=== PATIENT | male | born 1950 | race Caucasian/White ===

== ENCOUNTER → 2020-08-15 08:43 | Outpatient (BNVA) | payer MEDICARE, SELFPAY | PROVIDERS: PCP Internal Medicine; Visit Provider Internal Medicine | DX: I48.0 Paroxysmal atrial fibrillation (principal); Z51.81 Encounter for therapeutic drug level monitoring; Z79.01 Long term (current) use of anticoagulants | CPT/HCPCS: 85610; 99211 ==

== ENCOUNTER → 2020-09-17 08:21 | Outpatient (BNVA) | payer MEDICARE, SELFPAY | PROVIDERS: PCP Internal Medicine; Visit Provider Internal Medicine | DX: I48.0 Paroxysmal atrial fibrillation (principal); Z51.81 Encounter for therapeutic drug level monitoring; Z79.01 Long term (current) use of anticoagulants | CPT/HCPCS: 85610; 99211 ==

== ENCOUNTER → 2020-10-29 07:56 | Outpatient (BNVA) | payer MEDICARE, SELFPAY | PROVIDERS: PCP Internal Medicine; Visit Provider Internal Medicine | DX: Z76.89 Persons encountering health services in other specified circumstances (principal) ==

== ENCOUNTER → 2020-11-22 11:16 | Outpatient (BNVA) | payer MEDICARE, SELFPAY | PROVIDERS: PCP Internal Medicine; Visit Provider Internal Medicine | DX: I48.0 Paroxysmal atrial fibrillation (principal); Z51.81 Encounter for therapeutic drug level monitoring; Z79.01 Long term (current) use of anticoagulants | CPT/HCPCS: 85610; 99211 ==

== ENCOUNTER → 2020-11-29 13:05 | Outpatient (BNVA) | payer MEDICARE, SELFPAY | PROVIDERS: PCP Internal Medicine; Visit Provider Internal Medicine | DX: I48.0 Paroxysmal atrial fibrillation (principal); Z51.81 Encounter for therapeutic drug level monitoring; Z79.01 Long term (current) use of anticoagulants | CPT/HCPCS: 85610; 99211 ==

== ENCOUNTER → 2020-12-04 11:01 | Outpatient (BNVA) | payer MEDICARE, SELFPAY | PROVIDERS: PCP Internal Medicine; Visit Provider Internal Medicine | DX: I48.0 Paroxysmal atrial fibrillation (principal); Z51.81 Encounter for therapeutic drug level monitoring; Z79.01 Long term (current) use of anticoagulants | CPT/HCPCS: 85610; 99211 ==

== ENCOUNTER 2020-12-10 10:22 | Outpatient (REF) | payer MEDICARE, SELFPAY ==
[2020-12-10 11:16] LABS: Estimated Average Glucose 212 mg/dL
[2020-12-10 11:34] LABS: Alanine Aminotransferase 28 U/L (0-40); Alkaline Phosphatase 103 U/L (39-117); Anion Gap 13 (12-20); Aspartate Amino Transferase 21 U/L (5-37); Bilirubin Total 0.9 mg/dL (0.0-1.0); Blood Urea Nitrogen 18 mg/dL (9-16); Carbon Dioxide 30 mmol/L (22-29); Chloride 100 mmol/L (96-108); Estimated Glomerular Filt Rate > 60; Glucose Random 224 mg/dL (60-115); Potassium 4.8 mmol/L (3.3-5.1); Sodium 138 mmol/L (135-145)
== END 2020-12-10 10:23 | disposition home or self-care (01) ==
LOC: HO.HMGCLDS 10:22
PROVIDERS: PCP Internal Medicine; Visit Provider Internal Medicine
DX: Z00.01 Encounter for general adult medical examination with abnormal findings (principal); E03.9 Hypothyroidism, unspecified; E11.65 Type 2 diabetes mellitus with hyperglycemia; F22 Delusional disorders; F32.9 Major depressive disorder, single episode, unspecified
CPT/HCPCS: 36415; 80053; 83036

== ENCOUNTER → 2020-12-17 10:30 | Outpatient (BNVA) | payer MEDICARE, SELFPAY | PROVIDERS: PCP Internal Medicine; Visit Provider Internal Medicine | DX: I48.0 Paroxysmal atrial fibrillation (principal); Z51.81 Encounter for therapeutic drug level monitoring; Z79.01 Long term (current) use of anticoagulants | CPT/HCPCS: 85610; 99211 ==

== ENCOUNTER 2021-01-01 14:02 | Outpatient (REF) | payer MEDICARE, SELFPAY ==
--- NOTE | ~2021-01-01 | MR_ITS ---
EXAMINATION: MR BRAIN WITHOUT CONTRAST CLINICAL INFORMATION: 70-year-old with ataxia. COMPARISON: None TECHNIQUE: Multiplanar, multisequence MR imaging of the brain was done without IV contrast. FINDINGS: Brain Volume: There is lgikhgkd-ko-jeekik diffuse generalized supratentorial and cerebellar brain parenchymal volume loss without disproportionate cerebellar volume loss. There is relatively prominent mid brain volume loss with a somewhat bird beak configuration to the superior midbrain, which could be consistent with progressive supranuclear palsy. There is pontine and medullary volume loss, as well. Structural: No malformations. 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 There is a small remote infarct in the right cerebral hemisphere in the superior cerebellar artery distribution. Minimal patchy T2 hyperintensity is noted in the ankit, consistent with chronic microvascular ischemic change. Gradient-echo imaging demonstrates no evidence for hemorrhage or hemosiderin staining. DWI imaging demonstrates no evidence for recent or acute ischemic event. No extra-axial fluid collections, space-occupying process or mass effect. There is a probable remote deep white matter infarct in the deep right rizo radiata adjacent to the caudate nucleus with focal ex vacuo dilatation of the adjacent anterior body of the left lateral ventricle. Ventricles and Subarachnoid Spaces: There is diffuse moderate ventriculomegaly particularly involving the lateral ventricles, which is likely related to volume loss. Cannot entirely exclude the possibility of normal pressure hydrocephalus as this does appear to be slightly out of proportion to the degree of sulcal prominence. Orbital Structures: The visualized orbital structures demonstrate evidence of a previous lens removal on the right. Vascular: There are signal voids noted in the visualized major intracranial vessels. MR/MR head/brain wo con IMPRESSION: 1. Extensive diffuse generalized brain parenchymal volume loss, as described above, in addition to volume loss of the midbrain, ankit and medulla. The configuration of the midbrain could be consistent with progressive supranuclear palsy if this is a clinical consideration. 2. Extensive bilateral white matter disease consistent with subcortical arteriosclerotic encephalopathy with probable chronic microvascular ischemic change in the ankit and a remote infarct in the right cerebellar hemisphere in the SCA distribution. Probable remote deep white matter infarct in the left deep rizo radiata adjacent to the caudate head. 3. Ventriculomegaly, as described above, which could be secondary to volume loss, but difficult to exclude the possibility of NPH.
== END 2021-01-01 14:03 | disposition home or self-care (01) ==
LOC: HO.MRI 14:02
PROVIDERS: Visit Provider Psychiatry & Neurology Neurology
DX: R27.0 Ataxia, unspecified (principal)
CPT/HCPCS: 70551

== ENCOUNTER → 2021-01-07 10:24 | Outpatient (BNVA) | payer MEDICARE, SELFPAY | PROVIDERS: PCP Internal Medicine; Visit Provider Internal Medicine | DX: I48.0 Paroxysmal atrial fibrillation (principal); Z51.81 Encounter for therapeutic drug level monitoring; Z79.01 Long term (current) use of anticoagulants | CPT/HCPCS: 85610; 99211 ==

== ENCOUNTER → 2021-02-12 10:24 | Outpatient (BNVA) | payer MEDICARE, SELFPAY | PROVIDERS: PCP Internal Medicine; Visit Provider Internal Medicine | DX: I48.0 Paroxysmal atrial fibrillation (principal); Z79.01 Long term (current) use of anticoagulants; Z51.81 Encounter for therapeutic drug level monitoring | CPT/HCPCS: 85610; 99211 ==

== ENCOUNTER → 2021-03-11 10:36 | Outpatient (BNVA) | payer MEDICARE, SELFPAY | PROVIDERS: PCP Internal Medicine; Visit Provider Internal Medicine | DX: I48.0 Paroxysmal atrial fibrillation (principal); Z51.81 Encounter for therapeutic drug level monitoring; Z79.01 Long term (current) use of anticoagulants | CPT/HCPCS: 85610; 99211 ==

== ENCOUNTER 2021-04-03 07:26 | Outpatient (REF) | payer MEDICARE, SELFPAY ==
--- NOTE | ~2021-04-03 | FL_ITS ---
EXAMINATION: XR LUMBAR PUNCTURE CLINICAL INFORMATION: NPH. COMPARISON: None TECHNIQUE: After explaining procedure, benefits and risk to patient's daughter via phone in presence of x-ray tech, written consent was obtained. Patient was placed prone on fluoroscopy table, and low back area was cleaned and draped in usual sterile manner. 1% lidocaine was injected overlying the L4-L5 disc level in the left paramidline region. A 22-gauge spinal needle was then advanced from the skin to the level of L3-L4 thecal sac, however, this could not be advanced. An attempt was made with a right paramidline approach at the L3-L4 disc level in a similar fashion and needle could not be advanced. Hemostasis was achieved at the puncture site. Simple band-aid applied. FINDINGS: Unsuccessful fluoroscopy-guided lumbar puncture performed at the L3-L4 disc level. FLUOROSCOPY TIME: 11.6 minutes DOSE AREA PRODUCT: 73.756 uGy-m2 (microgray-meter squared) FL/FL guided lumbar puncture LP IMPRESSION: Unsuccessful fluoroscopy-guided lumbar puncture performed. Recommend CT lumbar spine evaluation to evaluate lumbar spine.
[2021-04-03 07:49] VITALS: BMI 20.5
[2021-04-03 07:50] VITALS: BP 138/76; PULSE 83; RESP 16; TEMP 36.6; O2SAT 96
[2021-04-03 08:23] VITALS: BP 133/78; PULSE 75; RESP 16; O2SAT 96
[2021-04-03 08:47] VITALS: BP 146/85; PULSE 77; RESP 17; TEMP 37.1; O2SAT 97
[2021-04-03 08:58] LABS: Glucose, Whole Blood 206 mg/dL (60-115)
[2021-04-03 09:56] LABS: MANUAL DIFF FLAG NO
[2021-04-03 10:00] LABS: Basophils Absolute Auto 0.1 X10*3/uL (0.0-0.2); Basophils Percent Auto 0.5 % (0-2); Eosinophils Absolute Auto 0.2 X10*3/uL (0.0-0.4); Eosinophils Percent Auto 2.4 % (0-4); Hematocrit 36.6 % (42-52); Imm Gran Abs Auto 0.05 X10*3/uL (0.00-0.03); Imm Gran Pct Auto 0.5 % (0.0-0.4); Lymphocytes Percent Auto 10.5 % (20-40); Mean Corpuscular HGB Conc 32.8 g/dl (31.0-36.0); Mean Corpuscular Hemoglobin 28.8 pg (27.0-33.0); Mean Platelet Volume 11.4 fL (9.4-12.4); Monocytes Absolute Auto 0.7 X10*3/uL (0.1-1.2); Monocytes Percent Auto 7.1 % (2-11); Neutrophils Absolute Auto 7.8 X10*3/uL (2.0-8.3); Platelet Count 211 X10*3/uL (160-400); Red Blood Count 4.16 X10*6/uL (4.60-5.80); Red Cell Distribution Width 15.2 % (11.0-16.0); White Blood Count 9.8 X10*3/uL (4.8-10.8)
[2021-04-03 10:23] LABS: INTERNATIONAL NORM RATIO 1.1 (0.9-1.1); Prothrombin Time 13.6 SEC (10.8-13.0)
[2021-04-03 10:26] LABS: Partial Thromboplastin Time 34.9 SEC (24.1-38.0)
[2021-04-03 12:14] VITALS: BP 120/78; PULSE 88; RESP 16; TEMP 36.6; O2SAT 97
[2021-04-03 12:28] VITALS: BP 127/75; PULSE 88; RESP 17; O2SAT 97
[2021-04-03 12:58] VITALS: BP 158/86; PULSE 97; RESP 19; O2SAT 98
== END 2021-04-03 07:27 | disposition home or self-care (01) ==
LOC: HO.MS 07:26
PROVIDERS: Radiology Diagnostic Radiology; PCP Internal Medicine; Visit Provider Psychiatry & Neurology Neurology
PROC: 009U3ZZ Drainage of Spinal Canal, Percutaneous Approach (ICD-10-PCS; CPT 62270; principal; 2021-04-03 08:00)
DX: G91.2 (Idiopathic) normal pressure hydrocephalus (principal); G62.9 Polyneuropathy, unspecified; G31.9 Degenerative disease of nervous system, unspecified; E11.9 Type 2 diabetes mellitus without complications; I67.9 Cerebrovascular disease, unspecified; F19.10 Other psychoactive substance abuse, uncomplicated; F32.9 Major depressive disorder, single episode, unspecified; F29 Unspecified psychosis not due to a substance or known physiological condition; Z79.4 Long term (current) use of insulin; Z79.899 Other long term (current) drug therapy
CPT/HCPCS: 36415; 62328; 82947; 85025; 85610; 85730

== ENCOUNTER 2021-04-30 13:12 | Outpatient (REF) | payer MEDICARE, SELFPAY ==
[2021-04-30 16:53] LABS: MANUAL DIFF FLAG NO
[2021-04-30 17:00] LABS: Basophils Absolute Auto 0.1 X10*3/uL (0.0-0.2); Basophils Percent Auto 0.6 % (0-2); Eosinophils Absolute Auto 0.3 X10*3/uL (0.0-0.4); Eosinophils Percent Auto 3.7 % (0-4); Hematocrit 35.7 % (42-52); Hemoglobin 11.5 g/dl (14.0-18.0); Imm Gran Abs Auto 0.04 X10*3/uL (0.00-0.03); Imm Gran Pct Auto 0.5 % (0.0-0.4); Lymphocytes Absolute Auto 1.4 X10*3/uL (1.2-4.9); Lymphocytes Percent Auto 15.6 % (20-40); Mean Corpuscular HGB Conc 32.2 g/dl (31.0-36.0); Mean Corpuscular Hemoglobin 28.3 pg (27.0-33.0); Mean Corpuscular Volume 87.7 fL (80-98); Mean Platelet Volume 11.9 fL (9.4-12.4); Monocytes Absolute Auto 0.8 X10*3/uL (0.1-1.2); Monocytes Percent Auto 9.2 % (2-11); Neutrophils Absolute Auto 6.1 X10*3/uL (2.0-8.3); Neutrophils Percent Auto 70.4 % (45-73); Platelet Count 270 X10*3/uL (160-400); Red Blood Count 4.07 X10*6/uL (4.60-5.80); Red Cell Distribution Width 14.1 % (11.0-16.0); White Blood Count 8.6 X10*3/uL (4.8-10.8)
[2021-04-30 17:08] LABS: Estimated Average Glucose 217 mg/dL; Hemoglobin A1c % 9.2 %
[2021-04-30 17:53] LABS: Prostate Specific Antigen 0.08 ng/mL (<0.05-4.0); Thyroid Stimulating Hormone 0.16 uIU/mL (0.32-4.0)
[2021-04-30 18:05] LABS: Alanine Aminotransferase 14 U/L (0-40); Alkaline Phosphatase 106 U/L (39-117); Anion Gap 16 (12-20); Aspartate Amino Transferase 15 U/L (5-37); Bilirubin Total 0.9 mg/dL (0.0-1.0); Blood Urea Nitrogen 15 mg/dL (9-16); Calcium 9.4 mg/dL (8.4-10.2); Carbon Dioxide 23 mmol/L (22-29); Chloride 101 mmol/L (96-108); Estimated Glomerular Filt Rate > 60; Glucose Random 380 mg/dL (60-115); Potassium 5.2 mmol/L (3.3-5.1); Sodium 135 mmol/L (135-145); Total Protein 7.1 g/dL (6.5-8.0)
== END 2021-04-30 13:13 | disposition home or self-care (01) ==
LOC: HO.HMGCLDS 13:12
PROVIDERS: PCP Internal Medicine; Visit Provider Internal Medicine
DX: E03.9 Hypothyroidism, unspecified (principal); E11.9 Type 2 diabetes mellitus without complications; I10 Essential (primary) hypertension; N40.0 Benign prostatic hyperplasia without lower urinary tract symptoms; R05 Cough; R63.4 Abnormal weight loss; Z79.01 Long term (current) use of anticoagulants
CPT/HCPCS: 36415; 80053; 83036; 84153; 84443; 85025; 85610; 99211

== ENCOUNTER 2021-07-26 10:18 | Outpatient (REF) | payer MEDICARE, SELFPAY ==
[2021-07-26 10:21] LABS: MANUAL DIFF FLAG NO
[2021-07-26 10:31] LABS: Basophils Percent Auto 0.5 % (0-2); Eosinophils Absolute Auto 0.3 X10*3/uL (0.0-0.4); Eosinophils Percent Auto 3.9 % (0-4); Hematocrit 34.7 % (42-52); Hemoglobin 11.2 g/dl (14.0-18.0); Imm Gran Abs Auto 0.03 X10*3/uL (0.00-0.03); Imm Gran Pct Auto 0.4 % (0.0-0.4); Lymphocytes Absolute Auto 1.1 X10*3/uL (1.2-4.9); Lymphocytes Percent Auto 12.5 % (20-40); Mean Corpuscular HGB Conc 32.3 g/dl (31.0-36.0); Mean Corpuscular Hemoglobin 27.4 pg (27.0-33.0); Mean Corpuscular Volume 84.8 fL (80-98); Mean Platelet Volume 11.3 fL (9.4-12.4); Monocytes Absolute Auto 0.6 X10*3/uL (0.1-1.2); Monocytes Percent Auto 7.2 % (2-11); Neutrophils Absolute Auto 6.4 X10*3/uL (2.0-8.3); Neutrophils Percent Auto 75.5 % (45-73); Platelet Count 290 X10*3/uL (160-400); Red Blood Count 4.09 X10*6/uL (4.60-5.80); Red Cell Distribution Width 15.1 % (11.0-16.0); White Blood Count 8.5 X10*3/uL (4.8-10.8)
[2021-07-26 10:35] LABS: INTERNATIONAL NORM RATIO 3.6 (0.9-1.1); Prothrombin Time 41.5 SEC (9.9-13.0)
== END 2021-07-26 10:19 | disposition home or self-care (01) ==
LOC: HO.LNP 10:18
PROVIDERS: Visit Provider Internal Medicine Geriatric Medicine
DX: I50.9 Heart failure, unspecified (principal); I48.0 Paroxysmal atrial fibrillation; Z51.81 Encounter for therapeutic drug level monitoring; Z79.01 Long term (current) use of anticoagulants
CPT/HCPCS: 85025; 85610; Q3014

== ENCOUNTER 2021-08-02 10:53 | Outpatient (REF) | payer MEDICARE, SELFPAY ==
[2021-08-02 10:22] LABS: Prothrombin Time 34.8 SEC (9.9-13.0)
== END 2021-08-02 10:54 | disposition home or self-care (01) ==
LOC: HO.LHD 10:53
PROVIDERS: Visit Provider Internal Medicine
DX: I48.0 Paroxysmal atrial fibrillation (principal); Z95.3 Presence of xenogenic heart valve; Z51.81 Encounter for therapeutic drug level monitoring; Z79.01 Long term (current) use of anticoagulants
CPT/HCPCS: 36415; 85610; Q3014

== ENCOUNTER 2021-08-09 12:15 | Outpatient (REF) | payer MEDICARE, SELFPAY ==
[2021-08-09 09:44] LABS: INTERNATIONAL NORM RATIO 2.9 (0.9-1.1)
== END 2021-08-09 12:16 | disposition home or self-care (01) ==
LOC: HO.LHD 12:15
PROVIDERS: Visit Provider Internal Medicine
DX: Z95.3 Presence of xenogenic heart valve (principal)
CPT/HCPCS: 36415; 85610

== ENCOUNTER 2021-08-16 06:13 | Outpatient (REF) | payer MEDICARE, SELFPAY ==
[2021-08-16 09:47] LABS: INTERNATIONAL NORM RATIO 4.1 (0.9-1.1)
== END 2021-08-16 06:14 | disposition home or self-care (01) ==
LOC: HO.LHD 06:13
PROVIDERS: Visit Provider Internal Medicine
DX: I48.0 Paroxysmal atrial fibrillation (principal); Z51.81 Encounter for therapeutic drug level monitoring; Z79.01 Long term (current) use of anticoagulants
CPT/HCPCS: 36415; 85610; Q3014

== ENCOUNTER 2021-08-21 14:19 | Outpatient (REF) | payer MEDICARE, SELFPAY ==
--- NOTE | ~2021-08-21 | FL_ITS ---
EXAMINATION: FL BARIUM SWALLOW CLINICAL INFORMATION: Parkinson's disease. Dysphagia. COMPARISON: None TECHNIQUE: Fluoroscopic guidance was provided for barium swallow performed by the speech and hearing department. FINDINGS: There is aspiration seen with all administered solids and liquids, thin barium, honey thickened nectar and applesauce. FLUOROSCOPY TIME: 1.4 minutes DOSE AREA PRODUCT: 1.5 Gy-cm2 FL/FL barium swallow modified IMPRESSION: Aspiration.
--- NOTE | 2021-08-21 15:08 | MHC.SLORD ---
Speech Language Pathology Order Status: MBSS completed this date. Evidence of aspiration on thin liquid, honey thick liquid, and applesauce. Recommend NPO. Recommend patient to be seen by PCP at earliest convenience. Additionally, patient would benefit from consult with G.I. specialist and australian rules footballer. Counseling and education provided to patient, patient's , Luzma, and patient's daughter, Stephanie. CHICK GRADER called patient's PCP, Dr. Santana and left message with weekend receptionist to notify MD of these results and recommendations. Report to be faxed to PCP.
--- NOTE | 2021-08-21 15:23 | MHC.SLORD ---
Speech Language Pathology Order Status: PRODUCT MGR called and spoke with nurse Sapna Cassidy from [facility] visiting nurses. Patient is seen by a nurse practitioner, and next visit is reportedly scheduled in August. Per request of patient, patient's and patient's daughter, PRODUCT MGR notified Sapna that patient had aspirated during MBSS and was recommended NPO status. Sapna requested report to be faxed to [facility] at fax number [phone].
--- NOTE | 2021-08-22 14:23 | MHC.SL.IMP ---
Date of Plan of Treatment: 08/21/21 Onset of Symptoms/Illness: 06/21/21 Date Treatment Started: 08/21/21 Admitting Diagnosis: Diabetes Depression Psychosis Anxiety Multifactorial gait disorder Cerebral microvascular disease Previous CVA Primary Speech & Language Diagnosis: R13.12 Oropharyngeal Phase Dysphagia Secondary Speech & Language Diagnosis: R49.0 Dysphonia Reason for Today's Visit: 27171 Modified Barium Swallow Study Pre-evaluation Dietary Consistencies: Pureed (NDD1) Pre-evaluation Liquid Consistency: Thin Pre-evaluation Medication Administration: Crushed with Puree Medical History: Modified Barium Swallow Study Fluoroscopic Evaluation of Swallowing Function CPT Code 31344 Evaluation Year: 2020 Reason for Study: Patient displays overt s/s of aspiration. Referring Physician: Flor Santana MD Evaluating Clinician: Aurora Pratt M.A., CCC-ELECTRONIC COMPONENT PROCESSOR Study Number: 1 Patient Name: Arturo Lipscomb Status: Outpatient, Wheelchair Age: 70 Gender: Male MEDICAL HISTORY: Year of Onset or Diagnosis: 2020 Comorbidities: Diabetes Depression Psychosis Anxiety Multifactorial gait disorder Cerebral microvascular disease Previous CVA Current (pre-evaluation) Intake/Diet: Route: PO Diet Grade: Puree Liquid Consistencies: Thin Pre-Study Functional Oral Intake Scale (FOIS): 5- Total oral intake of multiple consistencies requiring special preparation Pain: None reported at time of study SUBJECTIVE: Patient is a 70 year old male who was accompanied to this exam by his daughter, Stephanie, and his , Luzma, who are very involved in his care and assisted in providing relevant background information included in this report. Patient ambulates with a wheelchair. Family reports that patient had a couple of strokes in late October 2020- early November 2020, and that he is diagnosed with dementia. Patient?s , Luzma, reports onset of dysphagia ?months? ago with noticeable worsening of symptoms the past 2 months. Luzma and patient report that patient must eat very specific food items such as soup broth, smoothies, and applesauce because food ?will not go down? and patient is ?unable to swallow.? Additionally patient reports globus sensation and located to throat. Patient reportedly has difficulty bringing up phlegm. ELECTRONIC COMPONENT PROCESSOR completed chart review. On 07/26/21 when seen by a nurse here at [facility], Luzma reported that patient was in failing health, as he was unable to speak, had decreased appetite, increased dementia, increased weakness, and exhibited difficulty transferring to wheelchair. On 08/16/21, patient and family continued to report poor appetite and difficulty swallowing. Brain MRI on 01/01/21 showed, ?Extensive diffuse generalized parenchymal volume loss, as described above, in addition to volume loss of the midbrain, ankit, and medulla. The configuration of the midbrain could be consistent with progressive supranuclear palsy if this is a clinical consideration; Extensive bilateral white matter disease consistent with subcortical arteriosclerotic encephalopathy with probable chronic microvascular ischemic change in the ankit and a remote infarct in the right cerebellar hemisphere in the SCA distribution. Probable remote deep white matter infarct in the left deep rizo radiata adjacent to the caudate head; Ventriculomegaly as described above which could be secondary to volume loss, but difficult to exclude the possibility of NPH.? Patient is followed by his primary care physician and is seen by a nurse practitioner at home through [facility]. Oral Motor Exam Facial Symmetry: Symmetrical Oral-Facial Teeth Characteristics: Edentulous Oral-Facial Lip Pucker Description: Normal Oral-Facial Smile (Lips) Description: Normal Oral-Facial Puff Cheeks Description: Normal Oral-Facial Lip Miscellaneous Comment: Noted bumps on tongue base. Tongue Size: Normal Tongue Excursion Description: Normal Tongue Range of Movement Description: Normal Tongue Speed of Movement Description: Reduced Tongue Strength of Movement (against opposing pressure): Normal Tongue Movement Characteristics: Normal/Absent Tongue Movement Miscellaneous Observation: Patient used jaw for support of lateral tongue movements. Oral Expression Ability: Severe Impairment Food and Liquid Trials: Oral Impairment: Lip Closure: 2=Escape @ interlabial space/lat juncture; not beyond vermilion border Oral Impairment: Tongue Control During Bolus Hold: 2=Posterior escape of less than half of bolus Oral Impairment: Bolus Preparation/Mastication: Did not test Oral Impairment: Bolus Transport/Lingual Motion: 3=Repetitive/disorganized tongue motion Oral Impairment: Oral Residue: 1=Trace residue lining oral structures Oral Impairment:Initiation of Pharyngeal Swallow: 3=Bolus head in pyriforms Pharyngeal Impairment: Soft Palate Elevation: 0=No bolus between soft palate (SP)/pharyngeal wall (PW) Pharyngeal Impairment: Laryngeal Elevation: 2=Minimal superior movement of thyroid cartilage (see description) Pharyngeal Impairment: Anterior Hyoid Excursion: 1=Partial anterior movement Pharyngeal Impairment: Epiglottic Movement: 2=No inversion Pharyngeal Impairment: Laryngeal Vestibular Closure:: 2=None: No inversion Pharyngeal Impairment: Pharyngeal Stripping Wave: 1=Present: diminished Pharyngeal Impairment: Pharyngeal Contraction: Did not test Pharyngeal Impairment: Pharyngoesophageal Segment Openin=Partial distention/partial duration: partial obstruction of flow Pharyngeal Impairment: Tongue Base (TB) Retraction: 2=Narrow column of contrast/air between TB and posterior PW Pharyngeal Impairment: Pharyngeal Residue: 3=Majority of contrast within or on pharyngeal structures Pharyngeal Impairment: Esophageal Clearance Upright Position: Did not test Impressions and Recommendations Clinical Observations: OBJECTIVE: Time-out: performed at 3:10 Evaluation Start: 02:30; Stop: 02:40 Patient Positioning: Seated 70-90 degrees Viewing Planes: LATERAL ONLY Contrast: MBSImP? Standardized Protocol using commercially prepared, standardized Barium viscosities, including: Varibar? THIN LIQUID (40% w/v, <15 cps) , Varibar? THIN HONEY (40% w/v, <800-1800 cps) MBSImP ID: [id number] MBSImP Results: Lip closure for intraoral bolus containment resulted in bolus escape from the interlabial space or lateral juncture, but no extension beyond the vermilion border. Tongue control during bolus hold resulted in posterior escape of less than half of the bolus. Bolus preparation and mastication could not be assessed; solid not given due to logistical reasons or safety concerns unrelated to oral impairment. Bolus transport/lingual motion was with repetitive/disorganized motion of the tongue. Oral residue was a trace, lining oral structures. Initiation of the pharyngeal swallow occurred when the bolus head was in the pyriform sinuses. Soft palate elevation resulted in no bolus between the soft palate and the pharyngeal wall. Laryngeal elevation was incomplete, as indicated through minimal superior movement of the thyroid cartilage with minimal approximation of the arytenoids to the epiglottic petiole. Anterior hyoid excursion demonstrated partial anterior movement. Epiglottic movement resulted in no inversion. Laryngeal vestibular closure was absent, resulting in a wide column of air/contrast within the laryngeal vestibule at the height of the swallow. Pharyngeal stripping wave was present, but diminished. Pharyngeal contraction could not be determined due to logistical reasons not related to physiologic impairment. Pharyngoesophageal segment opening demonstrated partial distension/partial duration, with partial obstruction of bolus flow. Tongue base retraction allowed a narrow column of contrast or air between the retracted tongue base and the posterior pharyngeal wall. Pharyngeal residue was the majority of contrast within or on pharyngeal structures. Esophageal clearance in the upright position could not be assessed due to logistical reasons not related to physiologic impairment. Oral Impairment Score: 10 (absence of score, component 3) Pharyngeal Impairment Score: 14 (absence of score, component 13) Esophageal Impairment Score: --- (absence of score, component 17) Laryngeal Penetration and Aspiration: Aspiration was observed in today's study. Honey-thick, Thin Contrast entered the airway, passed below the vocal folds, and no effort was made to eject. ASSESSMENT: This exam was conducted by a multidisciplinary team, which included a radiologist, radiology transcriptionist, speech language pathologist, and speech language pathology student records coordinator clinician. Patient was seated upright at 90 degree angle for lateral view only. Patient trialed the following liquid and solid consistencies: -5 mL thin liquid barium -cup sip honey thick liquid barium -pureed solid (mixture applesauce with barium paste) When presented with other food options, such as chicken salad and Vonda Doone cookie, patient and his indicated that those consistencies are too difficult for the patient and ?would not go down.? Patient displayed profound oropharyngeal phase dysphagia, characterized by impairments in the following components of swallow physiology: ORAL PHASE: -Incomplete lip closure, with escape of material to interlabial space and along vermilion border. -Premature posterior escape of bolus prior to initiation of swallow trigger. Material escaped and collected in the valleculae and pyriform sinuses prior to swallow trigger. -Repetitive posterior tongue movements -Delayed initiation of pharyngeal swallow trigger when bolus head reached the pyriform sinuses PHARYNGEAL PHASE: -Minimal superior movement of thyroid cartilage with minimal approximation of arytenoids to epiglottic petiole -Partial anterior hyoid movement and no epiglottic inversion. -Minimal to no laryngeal vestibular closure, resulting in wide column of contrast in the laryngeal vestibule -Diminished pharyngeal stripping wave -Significant pharyngeal residue in the valleculae and pyriform sinuses, with partial distention/partial duration; partial obstruction of flow through pharyngoesophageal segment opening. Nathan aspiration with all consistencies during this exam- thin liquid, honey thick liquid, and pureed solid. When drinking 5 mL thin liquid barium, noted aspiration during the swallow with no effort to eject material from airway. When drinking honey thick liquid, evidence of aspiration during the swallow and also on residual from pyriforms when swallowing multiple times in an effort to clear pharyngeal retention. Patient took a small bite of applesauce and displayed minimal clearance from pharyngeal structures, followed by aspiration on residual material. Patient was cued to cough and clear his throat after each trial, but this was ineffective in clearing material from airway. Patient was cued for chin tuck strategy, which effectively reduced pharyngeal retention, but contributed to aspiration. Discontinued exam for patient safety. The following compensatory strategies appear to have had a negative impact on swallowing function: Chin Tuck increased Aspiration Additional Swallow(s) per Bolus increased Aspiration Liquid Intake Recommendation: NPO Liquid Intake Strategies: Dietary Recommendations: NPO Medication Administration: NPO Recommended Treatments: Pharyngeal Resistive Exer Compens. Strategy Educat. Vocal Cord Adduction Exer Recommendation for Speech Therapy: Speech Therapy through [facility] Modified Barium Swallow Study - Outpatient Intake Recommendations: Route: NPO/Alternate Route Diet Grade: IDDSI Levels: Liquid Consistencies: IDDSI Levels: Post-Study Functional Oral Intake Scale (FOIS): 1- No oral intake Based on objective results of this study alone, safest recommendation is NPO. Patient displays profound oropharyngeal dysphagia, characterized by minimal pharyngeal clearance and aspiration during and after the swallow on residuals when consuming thin liquids, honey thick liquids, and pureed solids. Patient is at high aspiration risk. Patient is recommended consultations with a registered nursing professor/commercial journeyman electrician and rope rider to determine if alternative means of nutrition is appropriate for this patient. Ultimate decision for nutritional intake is to be made by the patient, his caregiver/family, and his medical team with consideration of the totality of the patient, other concomitant conditions, and overall quality of life. With any decision made, recommend rigorous oral care (at least 4 times daily) and elevate head of bed at least 30 degrees to reduce risk of microaspiration. It is important that patient has knowledge and understanding of the risks of aspiration, which include but are not limited to pneumonia, malnutrition, dehydration. Patient is recommended weekly speech therapy sessions for dysphagia treatment, preferably through [facility] due to patient?s difficulty transferring to wheelchair. Recommend a follow-up MBSS post-treatment to monitor for any changes/improvement and to determine most appropriate means for nutrition, which must be determined by patient and his care team keeping totality of patient in mind. Additionally, patient presents with severe dysphonia, characterized by weak voice, which became aphonic with increased utterance length. Patient and his family report increasing difficulty speaking. Recommend speech/language/voice evaluation with a speech language pathologist. Suggested Referrals: The patient might benefit from a referral to: Gastroenterology Indication for Referral: to determine most appropriate means of nutrition Neurology Indication for Referral: d/t patient?s history of CVA and dementia Nutrition Services Indication for Referral: to determine most appropriate means of nutrition Speech-Language Pathology Indication for Referral: dysphagia treatment and evaluation of speech/language/voice ENT Indication for Referral: bumps on tongue base Therapy Recommendations: Therapy will be initiated Frequency per Week: 2 Number of Weeks: 8 Prognosis for Improvement: The prognosis for the patient to meet nutritional needs by mouth is poor based on degree of impairment. Frequency/Duration: 2 x weekly x 8 weeks Date Range for Service Requested: Timeline to reassess: 3 months Print Color Matcher Goals: ? The patient will demonstrate improved swallowing function via repeat clinical evaluation, videoendoscopy/videofluoroscopy and/or patient self-rating scores. ? The patient and/or family will participate in further education for swallowing goals. Short Term Goals: ? Independent Home Exercise - The patient will perform 10 repetitions of the Effortful Swallow, Imelda Maneuver, Amara Maneuver 3 times a day with 100% accuracy and moderate cuing as part of a home exercise program. ? Structured Therapy - The patient will demonstrate 100% accuracy and require moderate cuing in structured swallowing therapy with the ELECTRONIC COMPONENT PROCESSOR using the following exercises/therapy approaches and therapy assisted devices: Effortful Swallow, Imelda Maneuver, Amara Maneuver, . ? Education - The patient, family, caregiver, treating assistant associate professor, nurse, physician will verbalize/demonstrate understanding of the results of this evaluation, the above recommendations, and the swallowing guidelines. Clinician - Supplemental, Miscellaneous Communication: It is important to note MBSS objective studies are snapshots in time and Patient function might vary with factors such as time of day or concomitant medical conditions. For this reason, the final treatment plan for this patient should rest with their medical care team. Additional recommendations should be considered with the totality of the Patient in mind.? Thank for the opportunity to participate in the care of this patient. If you have any questions about the content of this report, please contact the [facility] at [facility].? Education: Education regarding findings from today's study and plans for therapy were provided to Patient and family/caregiver through Verbal Instruction. Understanding was expressed by the Patient and family/caregiver. Artist Relationship Manager Clinician/Clinical Fellow: Yes: Meredith Conroy Supervisory Statement: N/A Speech Language Pathologist: Aurora Pratt M.A., CCC-ELECTRONIC COMPONENT PROCESSOR
== END 2021-08-21 14:20 | disposition home or self-care (01) ==
LOC: HO.XRAY 14:19
PROVIDERS: Visit Provider Internal Medicine
DX: R13.10 Dysphagia, unspecified (principal); I48.0 Paroxysmal atrial fibrillation; Z51.81 Encounter for therapeutic drug level monitoring; Z79.01 Long term (current) use of anticoagulants
CPT/HCPCS: 74230; 85610; 92611; 99211

== ENCOUNTER 2021-08-23 12:02 | Outpatient (REF) | payer MEDICARE, SELFPAY ==
[2021-08-23 10:15] LABS: INTERNATIONAL NORM RATIO 1.2 (0.9-1.1)
== END 2021-08-23 12:03 | disposition home or self-care (01) ==
LOC: HO.LHD 12:02
PROVIDERS: Visit Provider Internal Medicine
DX: Z95.3 Presence of xenogenic heart valve (principal)
CPT/HCPCS: 36415; 85610; Q3014

== ENCOUNTER 2021-08-26 08:55 | Outpatient (REF) | payer MEDICARE, SELFPAY ==
[2021-08-26 11:12] LABS: INTERNATIONAL NORM RATIO 1.3 (0.9-1.1); Prothrombin Time 14.3 SEC (9.9-13.0)
== END 2021-08-26 08:56 | disposition home or self-care (01) ==
LOC: HO.LHD 08:55
PROVIDERS: Visit Provider Internal Medicine
DX: I48.0 Paroxysmal atrial fibrillation (principal); Z95.3 Presence of xenogenic heart valve; Z51.81 Encounter for therapeutic drug level monitoring; Z79.01 Long term (current) use of anticoagulants
CPT/HCPCS: 36415; 85610; Q3014

== ENCOUNTER 2021-08-30 07:16 | Outpatient (REF) | payer MEDICARE, SELFPAY ==
[2021-08-30 10:21] LABS: INTERNATIONAL NORM RATIO 3.6 (0.9-1.1); Prothrombin Time 41.5 SEC (9.9-13.0)
== END 2021-08-30 07:17 | disposition home or self-care (01) ==
LOC: HO.LHD 07:16
PROVIDERS: Visit Provider Internal Medicine
DX: I48.0 Paroxysmal atrial fibrillation (principal); Z95.3 Presence of xenogenic heart valve; Z51.81 Encounter for therapeutic drug level monitoring; Z79.01 Long term (current) use of anticoagulants
CPT/HCPCS: 36415; 85610; Q3014

== ENCOUNTER 2021-09-03 10:20 | Outpatient (REF) | payer MEDICARE, SELFPAY ==
[2021-09-03 09:45] LABS: INTERNATIONAL NORM RATIO 3.4 (0.9-1.1)
== END 2021-09-03 10:21 | disposition home or self-care (01) ==
LOC: HO.LHD 10:20
PROVIDERS: Visit Provider Internal Medicine
DX: I48.0 Paroxysmal atrial fibrillation (principal); Z95.3 Presence of xenogenic heart valve; Z51.81 Encounter for therapeutic drug level monitoring; Z79.01 Long term (current) use of anticoagulants
CPT/HCPCS: 36415; 85610; Q3014

== ENCOUNTER 2021-09-09 07:36 | Outpatient (REF) | payer MEDICARE, SELFPAY | END 2021-09-09 07:37 | disposition home or self-care (01) | LOC: HO.LHD 07:36 | PROVIDERS: Visit Provider Internal Medicine | DX: Z13.89 Encounter for screening for other disorder (principal) ==